=== PATIENT | female | born 1970 | race Caucasian/White ===

== ENCOUNTER 2019-02-19 16:32 | Emergency (ER) | payer SELFPAY ==
[2019-02-19] MEDS ORDERED: cefTRIAXone 1 GM Vial IM ONE (16:58)
[2019-02-19] MEDS ORDERED: Sulfamethoxazole/Trimethoprim 800-160 MG Tab PO ONE (16:58)
[2019-02-19] MEDS ORDERED: Mupirocin Oint 22 GM Tube TOP ONE (16:58)
--- NOTE | 2019-02-19 17:05 | EDM.PDOC ---
ED HPI GENERAL MEDICAL PROBLEM - General Chief Complaint: General Stated Complaint: RIGHT BREAST BUG BITE?? Time Seen by Provider: 02/19/19 16:58 Source of Information: Reports: Patient History Limitations: Reports: No Limitations - History of Present Illness INITIAL COMMENTS - FREE TEXT/NARRATIVE: Patient is a 48-year-old female who presents to the emergency department this afternoon with a complaint of insect bite to right breast. Patient states that she noticed it this morning but may have had it for a longer period of time. Patient denies any other insect bites, wounds, rash, fever, out of country travel, history of breast cancer, or allergies. Onset: Gradual Duration: Day(s): Location: Reports: Chest Quality: Reports: Burning Severity: Mild Improves with: Reports: None Worsens with: Reports: None Associated Symptoms: Reports: No Other Symptoms. Denies: Fever/Chills, Nausea/ Vomiting - Related Data Allergies Allergy/AdvReac Type Severity Reaction Status Date / Time No Known Allergies Allergy Verified 02/19/19 16:44 Home Meds: Home Meds Methocarbamol [Robaxin-750] 750 mg PO TID PRN #15 tablet 04/13/18 [Rx] predniSONE [Prednisone] 20 mg PO DAILY #15 tablet 04/13/18 [Rx] traMADol [Ultram] 50 mg PO Q4H PRN #15 tab 04/13/18 [Rx] Sulfamethoxazole/Trimethoprim [Bactrim Ds Tablet] 1 each PO BID #14 tablet 02/19 [Rx] Past Medical History [employer] History: Reports: Endocrine/Metabolic History: Reports: Obesity/BMI 30+ Social & Family History - Tobacco Use Smoking Status *Q: Current Status Unknown - Caffeine Use Caffeine Use: Reports: Soda ED ROS GENERAL - Review of Systems Review Of Systems: ROS reveals no pertinent complaints other than HPI. Constitutional: Reports: No Symptoms HEENT: Reports: No Symptoms Respiratory: Reports: No Symptoms Cardiovascular: Reports: No Symptoms Endocrine: Reports: No Symptoms GI/Abdominal: Reports: No Symptoms : Reports: No Symptoms Musculoskeletal: Reports: No Symptoms Skin: Reports: Wound (to right breast) Neurological: Reports: No Symptoms Psychiatric: Reports: No Symptoms Hematologic/Lymphatic: Reports: No Symptoms Immunologic: Reports: No Symptoms ED EXAM, GENERAL - Physical Exam Exam: See Below Exam Limited By: No Limitations General Appearance: Alert, WD/WN, No Apparent Distress Throat/Mouth: Normal Inspection, Normal Oropharynx, No Airway Compromise Respiratory/Chest: No Respiratory Distress Neurological: Alert, Oriented, Normal Cognition Psychiatric: Normal Affect, Normal Mood Skin Exam: Warm, Dry, Intact, Normal Color, No Rash, Wound/Incision (At the medial inferior border of right breast. There is a 2 cm cellulitic area with central eruption. No fluctuance. Start of abscess suspected, however no discharge noted) Lymphatic: Other (No adenopathy of right axilla.) Course - Vital Signs Last Recorded V/S: Last Vital Signs Temp 98.5 F 02/19/19 16:40 Pulse 84 02/19/19 16:40 Resp 18 02/19/19 16:40 BP 147/87 H 02/19/19 16:40 Pulse Ox 94 L 02/19/19 16:40 - Orders/Labs/Meds Orders: Active Orders 24 hr Category Date Time Status Mupirocin Oint [Bactroban Oint] Med 02/19/19 16:58 Once 1 gm TOP ONETIME ONE Sulfamethoxazole/Trimethoprim [Septra DS] Med 02/19/19 16:58 Once 6 tab PO ONETIME ONE cefTRIAXone [Rocephin] Med 02/19/19 16:58 Once 1 gm IM ONETIME ONE - Re-Assessments/Exams Free Text/Narrative Re-Assessment/Exam: 02/19/19 17:07 Patient afebrile, vital signs stable, gave patient 1 g Rocephin IM, mupirocin topical, and prescription for Bactrim double strength twice a day will return to ER in 48 hours for recheck. Although treated for cellulitis, concern for reevaluation and resolution of breast tissue symptoms remains 02/19/19 17:09 Departure - Departure Time of Disposition: 17:11 Disposition: Home, Self-Care 01 Condition: Good Clinical Impression: Cellulitis - Discharge Information Instructions: Cellulitis, Adult, [id number], Skin Abscess, [id number] Referrals: PCP,Not In Area [Primary Care Provider] - Additional Instructions: Return to ER in 2 days for recheck. Take medication as directed. Use warm compresses for comfort. Do not squeeze site. - My Orders Last 24 Hours: My Active Orders 02/19/19 16:58 Mupirocin Oint [Bactroban Oint] 1 gm TOP ONETIME ONE Sulfamethoxazole/Trimethoprim [Septra DS] 6 tab PO ONETIME ONE cefTRIAXone [Rocephin] 1 gm IM ONETIME ONE - Assessment/Plan Last 24 Hours: My Active Orders 02/19/19 16:58 Mupirocin Oint [Bactroban Oint] 1 gm TOP ONETIME ONE Sulfamethoxazole/Trimethoprim [Septra DS] 6 tab PO ONETIME ONE cefTRIAXone [Rocephin] 1 gm IM ONETIME ONE Assessment:: Cellulitis Plan: Recheck in 48 hours
== END 2019-02-19 17:25 | disposition home or self-care (01) ==
LOC: KA.ED 16:32
DX: S20.161A Insect bite (nonvenomous) of breast, right breast, initial encounter (principal); N61.0 Mastitis without abscess; W57.XXXA Bitten or stung by nonvenomous insect and other nonvenomous arthropods, initial encounter
CPT/HCPCS: 99281; A9270-GY; J0696

== ENCOUNTER 2022-09-13 17:56 | Emergency (ER) | payer OTHER ==
[2022-09-13] MEDS ORDERED: Ibuprofen 400 MG Tab PO ONE (18:28)
[2022-09-13] MEDS ORDERED: Acetaminophen/HYDROcodone 325-5 MG Tab PO ONE (18:29)
== END 2022-09-13 19:05 | disposition home or self-care (01) ==
LOC: KA.ED 17:56
DX: S80.02XA Contusion of left knee, initial encounter (principal); M25.561 Pain in right knee; M25.552 Pain in left hip; M54.50 Low back pain, unspecified; E66.9 Obesity, unspecified; F17.210 Nicotine dependence, cigarettes, uncomplicated; Z68.42 Body mass index [BMI] 45.0-49.9, adult; Z86.16 Personal history of COVID-19; Z98.890 Other specified postprocedural states; W01.0XXA Fall on same level from slipping, tripping and stumbling without subsequent striking against object, initial encounter; Y92.89 Other specified places as the place of occurrence of the external cause; Y99.0 Civilian activity done for income or pay
CPT/HCPCS: 72100; 73502; 73562; 99283; A9270; 99284

== ENCOUNTER 2024-09-23 14:22 | Emergency (ER) | payer OTHER ==
[2024-09-23 14:37] LABS: BASOPHILS ABSOLUTE AUTO 0.03 10^3/uL (0.00-0.10); BASOPHILS PERCENT AUTO 0.4 % (0.0-1.0); EOSINOPHILS ABSOLUTE AUTO 0.27 10^3/uL (0.10-0.30); EOSINOPHILS PERCENT AUTO 3.5 % (1.0-3.0); HEMATOCRIT 45.8 % (37.0-47.0); HEMOGLOBIN 14.7 g/dL (12.0-16.0); IMMATURE GRAN ABSOLUTE AUTO 0.01 10^3/uL (0.00-0.04); IMMATURE GRAN PERCENT AUTO 0.1 % (0.0-0.4); LYMPHOCYTES ABSOLUTE AUTO 2.42 10^3/uL (1.00-4.00); LYMPHOCYTES PERCENT AUTO 31.3 % (20.0-40.0); MEAN CORPUSCULAR HEMOGLOBIN 30.4 pg (27.0-31.0); MEAN CORPUSCULAR HGB CONC 32.1 g/dL (32.0-36.0); MEAN CORPUSCULAR VOLUME 94.8 fL (82.0-92.0); MEAN PLATELET VOLUME 9.7 fL (7.4-10.4); MONOCYTES ABSOLUTE AUTO 0.44 10^3/uL (0.10-0.80); MONOCYTES PERCENT AUTO 5.7 % (2.0-8.0); NEUTROPHILS ABSOLUTE AUTO 4.55 10^3/uL (2.50-7.00); PLATELET COUNT,PLT 327 10^3/uL (150-400); RED BLOOD CELL COUNT 4.83 10^6/uL (3.80-5.50); RED CELL DISTRIBUTION WIDTH 13.9 % (11.5-14.5); WHITE BLOOD CELL COUNT,WBC 7.72 10^3/uL (5.00-10.00)
[2024-09-23 14:53] LABS: ALANINE AMINOTRANSFERASE,ALT 28 U/L (14-63); ALBUMIN 3.51 g/dL (3.40-5.00); ALKALINE PHOSPHATASE 99 U/L (46-116); ANION GAP 12.2 mmol/L (5-15); ASPARTATE AMNIOTRANSFERASE,AST 23 U/L (15-37); BILIRUBIN TOTAL 0.4 mg/dL (0.2-1.0); BLOOD UREA NITROGEN,BUN 13 mg/dL (7-18); CARBON DIOXIDE,CO2 28.6 mmol/L (21.0-32.0); CHLORIDE,CL 101 mmol/L (98-107); CREATININE 0.81 mg/dL (0.51-1.17); GLUCOSE RANDOM 99 mg/dL (70-140); POTASSIUM,K 3.8 mmol/L (3.5-5.1); PROTEIN TOTAL,TP 7.9 g/dL (6.4-8.2); SODIUM,NA 138 mmol/L (136-145)
[2024-09-23] MEDS: Ondansetron 4 MG/2 ML SDV IVPUSH ONE ×2 (14:53→15:35)
[2024-09-23 14:59] LABS: ESTIMATED GFR 86 mL/min (>=60)
[2024-09-23] MEDS: HYDROmorphone 1 MG/ML Syringe IVPUSH ONE (15:15)
[2024-09-23] MEDS: Ketorolac 30 MG/ML SDV IVPUSH ONE (16:45)
== END 2024-09-23 16:46 | disposition home or self-care (01) ==
LOC: KA.ED 14:22
DX: M54.50 Low back pain, unspecified (principal); M54.2 Cervicalgia; S70.11XA Contusion of right thigh, initial encounter; W01.0XXA Fall on same level from slipping, tripping and stumbling without subsequent striking against object, initial encounter; Y99.0 Civilian activity done for income or pay; Y92.89 Other specified places as the place of occurrence of the external cause
CPT/HCPCS: 36415; 70450; 72100; 72125; 72170; 73110-RT; 80053; 85025; 96374; 96375; 96376; 99284-25; J1171; J1885; J2405